=== PATIENT | female | born 2000 | race African-American/Black ===

== ENCOUNTER 2021-04-20 06:43 | Emergency (ER) | payer MEDICARE, MEDICAID, OTHER ==
[2021-04-20 08:41] LABS: #Basophils 0.1 10x3/uL (0.0-0.2); #Monocytes 1.4 10x3/uL (0.0-1.1); %Basophils 0.3 % (0.0-2.0); %Eosinophils 0.2 % (0.0-6.0); %Lymphocytes 12.1 % (18.0-47.0); %Monocytes 7.9 % (0.0-10.0); Hemoglobin 11.1 g/dL (12.0-15.5); Mean Corpuscular HGB CONC 31.3 g/dL (32.0-36.0); Mean Corpuscular Hemoglobin 25.6 pg (27.0-33.0); Mean Platelet Volume 10.3 fl (7.4-10.4); Platelet Count 412 10x3/uL (150-450); RBC Distribution Width 16.2 % (11.5-14.5); Red Blood Cell (RBC) Count 4.33 10x6/uL (3.90-5.03); White Blood Cell (WBC) Count 17.7 10x3/uL (3.5-10.5)
[2021-04-20 08:54] LABS: ALT (SGPT) 13 U/L (8-55); AST (SGOT) 24 U/L (5-34); Albumin 4.1 g/dL (3.5-5.0); Alkaline Phosphatase 47 U/L (40-110); Anion Gap 13 mmol/L (10-20); BUN (Urea Nitrogen) 4 mg/dL (7.0-18.7); Bilirubin, Total 0.4 mg/dL (0.2-1.2); Calc. Creatinine Clearance 0 mL/min (70-130); Calcium 9.7 mg/dL (7.8-10.44); Carbon Dioxide 21 mmol/L (22-29); Chloride 106 mmol/L (98-107); Globulin 2.8 g/dL (2.4-3.5); Glucose 95 mg/dL (70-105); Potassium 3.1 mmol/L (3.5-5.1); Protein, Total 6.9 g/dL (6.0-8.3); Sodium 137 mmol/L (136-145)
[2021-04-20] MEDS ORDERED: Lorazepam 1 MG TAB ONE (09:45)
[2021-04-20] MEDS ORDERED: Ibuprofen 200 MG TAB ONE (09:46)
[2021-04-20 10:14] LABS: Bilirubin Neg (Negative); Blood, Urine Negative (Negative); Clarity Slightly Cloudy (Clear); Glucose, Urine (Dipstick) Normal (Negative); Ketone, Urine 150 mg/dL (Negative); Leukocyte 500 (Negative); Nitrite Negative (Negative); Protein, Urine (Dipstick) 30 mg/dl (Neg-Trace); Specific Gravity, Urine 1.015 (1.002-1.036)
[2021-04-20 10:25] LABS: Bacteria/HPF 2+ HPF (None Seen); RBC/HPF 0-3 HPF (0-3); Squamous Epithelial 21-50 HPF (0-3); Trichomonas/HPF Rare HPF (None Seen)
[2021-04-20] MEDS ORDERED: metroNIDAZOLE 500 MG TAB ONE (10:46)
== END 2021-04-20 11:05 | disposition home or self-care (01) ==
LOC: CSHERS 06:43
DX: R07.89 Other chest pain (principal); A59.01 Trichomonal vulvovaginitis; N39.0 Urinary tract infection, site not specified; E87.6 Hypokalemia; F17.210 Nicotine dependence, cigarettes, uncomplicated
CPT/HCPCS: 71045; 80053; 81003; 81015; 84484; 85025; 87077; 87086; 93005

== ENCOUNTER 2024-03-30 16:50 | Emergency (ER) | payer MEDICARE, MEDICAID ==
[2024-03-30] MEDS ORDERED: Hydrocortisone 1% Cream 30 GM TUBE TOP SCH (18:00)
== END 2024-03-30 18:32 | disposition home or self-care (01) ==
LOC: CSHERS 16:50
DX: L30.9 Dermatitis, unspecified (principal); F17.210 Nicotine dependence, cigarettes, uncomplicated
CPT/HCPCS: 99283

== ENCOUNTER 2024-04-07 04:48 | Emergency (ER) | payer OTHER, MEDICAID ==
[2024-04-07] MEDS ORDERED: diphenhydrAMINE 25 MG CAP ONE (05:20)
== END 2024-04-07 05:23 | disposition home or self-care (01) ==
LOC: CSHERS 04:48
DX: L25.9 Unspecified contact dermatitis, unspecified cause (principal); F17.210 Nicotine dependence, cigarettes, uncomplicated
CPT/HCPCS: 99282